=== PATIENT | male | born 1945 | race Caucasian/White ===

== ENCOUNTER 2022-01-31 01:45 | Inpatient (IN) | payer MEDICARE, BC ==
[~2022-01-31] VITALS: Ht 167.6 cm; Wt 73.9 kg
[2022-01-31] MEDS ORDERED: BLOOD SUGAR DIAGNOSTIC 1 EACH STRIP IN ONE (02:00)
[2022-01-31] MEDS ORDERED: MAG HYDROX/AL HYDROX/SIMETH 30 ML UDC PO PRN (02:00)
[2022-01-31] MEDS ORDERED: LORAZEPAM 0.5 MG TABLET PO PRN (02:00)
[2022-01-31] MEDS ORDERED: MAGNESIUM HYDROXIDE 30 ML UDC PO PRN (02:00)
[2022-01-31] MEDS ORDERED: ZOLPIDEM TARTRATE 5 MG TABLET PO PRN (02:00)
[2022-01-31] MEDS ORDERED: ACETAMINOPHEN 325 MG TABLET PO PRN (02:00)
[2022-01-31 02:15] VITALS: BP 130/82
--- NOTE | 2022-01-31 03:49 | NUR ---
GPS-MODELING ANALYST NOTES: ADMITTED A 76-Y/O, MALE, FROM [facility], ADMITTED ON A 5150 FOR DTS. PER 5150 HOLD, EVALUATION REQUESTED BY ER STAFF AT [facility] REPORTING THAT CLIENT TOOK A BOTTLE OF HIS 'S MEDICATION, HID IT AND THREATEN TO INGEST IT AND KILL HIMSELF. CLIENT DENIES CURRENT SI/HI BUT CONFIRMS THAT HE THREATENS WHEN HE IS MAD. CLIENT REPORTS HE WANTS HELP. CLIENT'S SON REPORTS CLIENT IS VERY IMPULSIVE WHEN MAD. UPON FACE TO FACE EVALUATION WHEN PATIENT ADMITTED TO GPS UNIT, PATIENT IS A & O X 2, DISORGANIZED, [employer], THINKS THAT "HE IS IN [facility]" ANXIOUS/RESTLESS AT TIMES BUT REDIRECTABLE. TALKATIVE, PLEASANT AND COOPERATIVE WHEN RELAXED. DENIES SI/HI UPON ADMISSION. CONTINENT, USES URINAL OR BRP WITH ASSISTANCE ONLY. AMBULATORY WITH ASSISTANCE ONLY, UNSTEADY GAIT. FALL RISK. BED ALARM KEPT ON FOR SAFETY. PT EVAL ORDERED. PER PATIENT HE HAS VISION PROBLEM BILATERALLY. USES EYE GLASSES. SKIN ASSESSMENT DONE. PATIENT ADVISED OF HIS HOLD AND PATIENT RIGHTS BOOKLET AND PRESCRIPTION MEDICATION GUIDE GIVEN. ALL BELONGINGS WERE SCREENED FOR CONTRABAND. PT IS UNDER THE PSYCHIATRIC CARE OF DR. MONTES AND MEDICAL CARE OF DR. AUSTIN. BED IN LOW LOCKED POSITION. SAFETY PRECAUTIONS MAINTAINED. WILL CONTINUE TO MONITOR Q15 MINS FOR MOOD, SAFETY AND BEHAVIOR. NO FAMILY TO NOTIFY REGARDING PATIENT'S ADMISSION.
[2022-01-31] MEDS ORDERED: GABA300C PO (04:01)
[2022-01-31] MEDS ORDERED: LAMO100T2 PO (04:01)
[2022-01-31] MEDS ORDERED: ROSU10TA2 PO (04:01)
[2022-01-31] MEDS ORDERED: ESOM40CA PO (04:01)
[2022-01-31] MEDS ORDERED: ALPR0.5T PO (04:01)
[2022-01-31] MEDS ORDERED: CITA20TA19 PO (04:01)
[2022-01-31] MEDS ORDERED: LISI10TA29 PO (04:01)
--- NOTE | 2022-01-31 07:20 | NUR ---
CALLED PATIENT'S DAUGHTER TOSHA AT [phone] AND GAVE UPDATES ABOUT PATIENT'S ADMISSION. ALSO REQUESTED TOSHA TO PROVIDE PATIENT'S COVID, FLU AND PNEUMONIA VACCINE INFORMATION SINCE PATIENT IS UNABLE TO PROVIDE THIS INFORMATION. TOSHA STATED SHE WILL FIND ALL THIS INFORMATION FROM HER BROTHER AND INFORM US.
--- NOTE | 2022-01-31 07:31 | NUR ---
MRSA SWAB SENT TO LAB.
[2022-01-31 08:00] VITALS: BP 104/55
--- NOTE | 2022-01-31 09:00 | NUR ---
RN NOTE- ALERT INTERACTIVE THOUGH DOESN'T ENGAGE, ISOLATIVE, PARANOID, DEPRESSED, MINIMIZES CIRCUMSTANCES. PO INTAKE FAIR
--- NOTE | 2022-01-31 10:22 | NUR ---
GLORIA Initial Discharge Note: Patient currently resides at [address] [place] [address]; ([phone]). GLORIA spoke with pt's daughter Rimma ([phone]) who stated that upon discharge pt will be returning back home and they are in the process of hiring a night warehouse selector at home. GLORIA will work with the MD, treatment team, and family to help coordinate appropriate discharge.
--- NOTE | 2022-01-31 10:22 | NUR ---
GLORIA Family Contact: GLORIA spoke with patient's daughter Rimma ([phone]) and gathered collateral. SW explained and educated 6076/[id number] process. Rimma stated that pt lives at home with and son. She reported that pt will be returning back home upon discharge. She expressed that they are in the process of hiring a intensivist. 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 She shared that pt has become impulsive at home and has become angry. She reports that at home he has been very withdrawn and isolative. SW actively listened.
--- NOTE | 2022-01-31 10:24 | NUR ---
Treatment Plan: Pt refused to sign treatment plan and was uncooperative. He did not answer to any of this writers questions and had the blanket over his head.
[2022-01-31] MEDS: LamoTRIgine 100 MG TABLET PO SCH ×3 (12:00→21:26)
[2022-01-31] MEDS: CITALOPRAM HYDROBROMIDE 20 MG TABLET PO SCH ×2 (12:30→12:48)
[2022-01-31] MEDS: LISINOPRIL (10MG) 10 MG TABLET PO SCH (12:52)
[2022-01-31] MEDS: PANTOPRAZOLE 40 MG TABLET.DR PO SCH (12:52)
[2022-01-31 16:00] VITALS: BP 142/79
[2022-01-31] MEDS: GABAPENTIN 300 MG CAPSULE PO SCH (16:33)
[2022-01-31] MEDS ORDERED: GABAPENTIN 300 MG CAPSULE PO STA (17:55)
[2022-01-31] MEDS ORDERED: CITALOPRAM HYDROBROMIDE 20 MG TABLET PO STA (17:55)
[2022-01-31 20:05] VITALS: BP 116/76
[2022-01-31 20:12] VITALS: BP 116/76
[2022-01-31] MEDS: ATORVASTATIN 40 MG TABLET PO SCH (21:26)
[2022-02-01 07:46] LABS: HEMATOCRIT 37 % (39-51); HEMOGLOBIN 12.1 g/dL (13.5-17.5); MEAN CORPUSCULAR VOLUME 88 fL (80-96); RED BLOOD CELL COUNT(AUTO) 4.13 MIL/uL (4.5-6.0); WHITE BLOOD COUNT (AUTO) 4.5 K/uL (4.3-11.0)
[2022-02-01 07:47] LABS: BASOPHILS % (AUTO) 0.8 % (0.0-2.0); EOSINOPHILS % (AUTO) 2.2 % (0.0-6.0); LYMPHOCYTES # (AUTO) 1.1 K/uL (0.8-4.8); LYMPHOCYTES % (AUTO) 23.6 % (20.0-44.0); MEAN CORPUSCULAR HGB CONC 33 g/dl (31.0-36.0); MONOCYTES # (AUTO) 0.5 K/uL (0.1-1.30); MONOCYTES % (AUTO) 10.2 % (2.0-12.0); NEUTROPHILS # (AUTO) 2.9 K/uL (1.8-8.9); NEUTROPHILS % (AUTO) 63.2 % (43.0-81.0); PLATELET COUNT (AUTO) 122 K/uL (150-450)
[2022-02-01 08:00] VITALS: BP 132/78
[2022-02-01 08:07] LABS: CHOLESTEROL 106 mg/dL (<200); HDL CHOLESTEROL 32 mg/dL (40-60); LDL 58 mg/dL (0-99); TRIGLYCERIDES 165 mg/dL (30-150)
[2022-02-01 08:09] LABS: ALANINE AMINOTRANSFERASE 26 U/L (12-78); ALBUMIN 3.3 g/dL (3.4-5.0); ALKALINE PHOSPHATASE 49 U/L (46-116); ASPARTATE AMINOTRANSFERASE 17 U/L (15-37); BILIRUBIN,TOTAL 0.9 mg/dL (0.2-1.0); CALCIUM, SERUM 8.6 mg/dL (8.5-10.1); CARBON DIOXIDE 30 mmol/L (21-32); CHLORIDE 108 mmol/L (98-107); CREATININE 1.9 mg/dL (0.6-1.3); GLUCOSE 88 mg/dL (74-106); MAGNESIUM 2.5 mg/dL (1.8-2.4); PHOSPHORUS 4.1 mg/dL (2.5-4.9); POTASSIUM 4.9 mmol/L (3.5-5.1); SODIUM SERUM 141 mmol/L (136-145); TOTAL PROTEIN, SERUM 6.6 g/dL (6.4-8.2); UREA NITROGEN, BLOOD 29 mg/dL (7-18)
[2022-02-01] MEDS: PANTOPRAZOLE 40 MG TABLET.DR PO SCH (08:26)
[2022-02-01] MEDS: LamoTRIgine 100 MG TABLET PO SCH ×2 (08:55→21:12)
[2022-02-01] MEDS: ARIPIPRAZOLE 5 MG TABLET PO SCH (08:55)
[2022-02-01] MEDS: CITALOPRAM HYDROBROMIDE 20 MG TABLET PO SCH (08:55)
[2022-02-01] MEDS: LISINOPRIL (10MG) 10 MG TABLET PO SCH (08:57)
[2022-02-01] MEDS: GABAPENTIN 300 MG CAPSULE PO SCH ×2 (08:57→16:08)
--- NOTE | 2022-02-01 09:58 | NUR ---
GLORIA Coordination of Care: Pt will follow up with (Conveyor Man) Dr. Ortiz located at [address] [place] [address] , [place] [address]; on March 09 at 3:20PM, scheduled by Mely.
--- NOTE | 2022-02-01 10:06 | NUR ---
RN-CO: PATIENT IS COOPERATIVE TO CARE. DENIED SI, BUT HE IS GUARDED. HIS AFFECT IS APPROPRIATE AND HE IS PLEASANT TO PEERS AND STAFF. HE HAS MILD ANXIETY OF BEING HERE. I ENCOURAGED HIM TO VENTILATE FEELINGS AND TO PARTICIPATE IN GROUP ACTIVITIES.
--- NOTE | 2022-02-01 11:02 | NUR ---
GLORIA Note: SW met with pt to conduct individual therapy. Pt appeared paranoid and delusional. He did appear to be anxious stating that "people are stealing his items". SW unable to conduct therapy at this time due to his paranoia.
--- NOTE | 2022-02-01 13:44 | NUR ---
RN-CO: ATIVAN 1 MG PO GIVEN FOR SEVERE ANXIETY.
[2022-02-01 16:00] VITALS: BP 131/78
[2022-02-01 20:00] VITALS: BP 101/65
[2022-02-01] MEDS: ATORVASTATIN 40 MG TABLET PO SCH (21:12)
[2022-02-02 08:00] VITALS: BP 130/84
[2022-02-02] MEDS: PANTOPRAZOLE 40 MG TABLET.DR PO SCH (08:46)
[2022-02-02 08:48] LABS: BASOPHILS % (AUTO) 0.6 % (0.0-2.0); EOSINOPHILS % (AUTO) 2.1 % (0.0-6.0); HEMATOCRIT 35 % (39-51); HEMOGLOBIN 11.6 g/dL (13.5-17.5); LYMPHOCYTES # (AUTO) 1.2 K/uL (0.8-4.8); LYMPHOCYTES % (AUTO) 23.5 % (20.0-44.0); MEAN CORPUSCULAR HGB CONC 33 g/dl (31.0-36.0); MEAN CORPUSCULAR VOLUME 89 fL (80-96); MONOCYTES # (AUTO) 0.5 K/uL (0.1-1.30); MONOCYTES % (AUTO) 10.2 % (2.0-12.0); NEUTROPHILS # (AUTO) 3.2 K/uL (1.8-8.9); NEUTROPHILS % (AUTO) 63.6 % (43.0-81.0); PLATELET COUNT (AUTO) 117 K/uL (150-450); RED BLOOD CELL COUNT(AUTO) 3.99 MIL/uL (4.5-6.0)
[2022-02-02] MEDS ORDERED: AMLODIPINE BESYLATE 5 MG TABLET PO SCH (09:00)
[2022-02-02] MEDS: ARIPIPRAZOLE 5 MG TABLET PO SCH (09:08)
[2022-02-02 09:09] VITALS: BP 130/84
[2022-02-02] MEDS: GABAPENTIN 300 MG CAPSULE PO SCH (09:09)
[2022-02-02] MEDS: CITALOPRAM HYDROBROMIDE 20 MG TABLET PO SCH (09:09)
[2022-02-02] MEDS: LamoTRIgine 100 MG TABLET PO SCH (09:09)
[2022-02-02 09:22] LABS: CALCIUM, SERUM 8.4 mg/dL (8.5-10.1); CARBON DIOXIDE 27 mmol/L (21-32); CHLORIDE 107 mmol/L (98-107); CREATININE 2.1 mg/dL (0.6-1.3); GLUCOSE 110 mg/dL (74-106); MAGNESIUM 2.5 mg/dL (1.8-2.4); PHOSPHORUS 4.2 mg/dL (2.5-4.9); POTASSIUM 4.8 mmol/L (3.5-5.1); SODIUM SERUM 141 mmol/L (136-145); UREA NITROGEN, BLOOD 36 mg/dL (7-18)
--- NOTE | 2022-02-02 09:49 | NUR ---
GLORIA Family Contact: SW received a call from son Claudy ([phone]) who wants pt to be discharged and stated that pt is safe at home and stated that he has been seeing improvements. Requesting to speak to Dr. Edwards. Dr. Edwards is aware.
--- NOTE | 2022-02-02 11:29 | NUR ---
SW Discharge Note: Patient will be discharged AMA returning back home located at [address] [facility] [place] [address]; ([phone]) and lives with his Bogdan ([phone]). Patients son Claudy ([phone]) will picker/puller pt between 12:30-1PM Pt happy to be going back home. Pt denies visual/auditory hallucinations. Pt denies suicidal or homicidal ideation. Pt will follow up with (Leisure Studies Professor) Dr. Ortiz located at [address] [place] [address] [place] [address]; on March 09 at 3:20PM who will monitor and provide psychotropic medications. Pt presents with euthymic mood and congruent affect.
--- NOTE | 2022-02-02 13:35 | NUR ---
RN-NOTES PATIENT LEFT THE UNIT DR. JYOTI ZALDIVAR ( PSYCHIATRIST),RL MCKENZIE ( WEAVING INSPECTOR) ALSO MADE AWARE. PATIENT LEFT THE UNIT IN STABLE CONDITION A/O X3,AMBULATORY STEADY GAIT.DID NOT VERBALIZE SI/HI,DENIES VISUAL/AUDITORY HALLUCINATIONS AT THE TIME OF DISCHARGE.INSTRUCTED PATIENT TO FOLLOW UP WITH PCP AND PSYCHIATRIST IN A WEEK OR NEEDED AND GO TO THE NEAREST EMERGENCY FACILITY OR CALL 911 IN CASE OF EMERGENCY. PATIENT WAS ACCOMPANIED BY [employer] SUPPORT EQUIPMENT FITTER STAFF TO THE LOBBY FOR SAFETY ALL BELONGINGS WAS GIVEN BACK TO THE PATIENT. PATIENT WAS APPLICATION COORDINATOR BY SON SHERMAN VIA PRIVATE CAR.
== END 2022-02-02 13:30 | disposition left against medical advice (07) | DRG 885 ==
LOC: GPS 01:45
PROVIDERS: ADMIT Psychiatry & Neurology Psychiatry; ATTEND Nurse Practitioner Acute Care
DX: F33.3 Major depressive disorder, recurrent, severe with psychotic symptoms (principal); N17.0 Acute kidney failure with tubular necrosis; F29 Unspecified psychosis not due to a substance or known physiological condition; F41.9 Anxiety disorder, unspecified; F60.89 Other specific personality disorders; E78.5 Hyperlipidemia, unspecified; F03.90 Unspecified dementia, unspecified severity, without behavioral disturbance, psychotic disturbance, mood disturbance, and anxiety; Z86.73 Personal history of transient ischemic attack (TIA), and cerebral infarction without residual deficits; I10 Essential (primary) hypertension; E78.1 Pure hyperglyceridemia; D64.9 Anemia, unspecified; Z79.899 Other long term (current) drug therapy
CPT/HCPCS: 36415; 80048-TC; 80053-TC; 80061-TC; 82962-TC; 83735-TC; 84100-TC; 85025-TC; 87081-TC; 97116-TC; 97530-TC